=== PATIENT | male | born 1975 | race Caucasian/White ===

== ENCOUNTER 2017-01-17 07:43 | Emergency (ER) | payer OTHER ==
[~2017-01-17] VITALS: Ht 177.8 cm; Wt 96.2 kg
[~2017-01-17 07:43] MED LIST: CYCL10TA9 PO; HYDR-3816 PO; OXYC-197 PO; PRD20T PO
[2017-01-17 07:47] VITALS: BP 148/82
[2017-01-17] MEDS ORDERED: MELO15TA39 (08:12)
[2017-01-17 08:19] LABS: BILIRUBIN,URINE NEGATIVE (NEGATIVE); KETONES,URINE 1+ (NEGATIVE); LEUKOCYTE ESTERASE ,URINE 1+ (NEGATIVE); NITRITE,URINE NEGATIVE (NEGATIVE); PH,URINE 6 (5-9); PROTEIN,URINE 1+ (NEGATIVE); UROBILINOGEN,URINE 1 MG/DL (NORMAL)
[2017-01-17 08:20] LABS: BASOPHILS % (AUTO) 0 % (0-10); EOSINOPHILS # (AUTO) 0.3 10^3/uL (0.0-0.3); EOSINOPHILS % (AUTO) 4 % (0-10); LYMPHOCYTES # (AUTO) 2.3 X 10^3 (1.0-4.0); LYMPHOCYTES % (AUTO) 30 % (12-44); MEAN CORPUSCULAR HEMOGLOBIN 32 PG (25-34); MEAN CORPUSCULAR HGB CONC 35 G/DL (32-36); MEAN CORPUSCULAR VOLUME 90 FL (80-99); MEAN PLATELET VOLUME 9.4 FL (7.4-10.4); MONOCYTES # (AUTO) 0.6 X 10^3 (0.0-1.0); MONOCYTES % (AUTO) 8 % (0-12); NEUTROPHILS # (AUTO) 4.4 X 10^3 (1.8-7.8); NEUTROPHILS % (AUTO) 57 % (42-75); PLATELET COUNT 272 10^3/uL (130-400); RED BLOOD COUNT 5.02 10^6/uL (4.35-5.85); RED CELL DISTRIBUTION WIDTH 12.6 % (10.0-14.5); WHITE BLOOD COUNT 7.7 10^3/uL (4.3-11.0)
[2017-01-17 08:28] LABS: WBC,URINE RARE /HPF
[2017-01-17 08:39] LABS: ALANINE AMINOTRANSFERASE 24 U/L (0-55); ALBUMIN 4.5 GM/DL (3.2-4.5); ANION GAP 12 MMOL/L (5-14); ASPARTATE AMINO TRANSFERASE 15 U/L (5-34); BILIRUBIN,TOTAL 0.6 MG/DL (0.1-1.0); BLOOD UREA NITROGEN 13 MG/DL (7-18); BUN/CREATININE RATIO 11; CALCIUM 9.6 MG/DL (8.5-10.1); CARBON DIOXIDE 20 MMOL/L (21-32); CHLORIDE 109 MMOL/L (98-107); CREATININE SERUM 1.16 MG/DL (0.60-1.30); GFR ESTIMATED > 60; GLUCOSE 86 MG/DL (70-105); POTASSIUM 4.1 MMOL/L (3.6-5.0); SODIUM 141 MMOL/L (135-145); TOTAL PROTEIN 7.6 GM/DL (6.4-8.2)
[2017-01-17] MEDS ORDERED: fentaNYL INJECTION 100 MCG/2 ML AMP IM ONE (08:45)
--- NOTE | 2017-01-17 08:51 | ED Hip Pain/Injury ---
General Chief Complaint: Hip/Pelvic Problems Stated Complaint: LOWER LT BACK,LT HIP & LEG PAIN Nursing Triage Note: AMB TO ROOM WITH L HIP REPORTS ONSET YESTERDAY AFTER GETTING OFF COUCH Source: patient Exam Limitations: no limitations History of Present Illness Time seen by provider: 08:47 Initial Comments The patient is a 41-year-old white male who presents with a chief complaint of pain in his left buttocks and hip area. He reports that he got up off the couch at about 02 30 yesterday with considerable back pain although not so severe as today. He was still present when he got up at 05 30 but less. He was able to go to work and do reasonably well yesterday. 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 The pain is unabated. There is some radiation down the back of the left thigh. He arrived at work here in [place]. 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 He was really unable to perform and his boss sent him here. He reports an episode about 6 months ago which was less severe. He can recall no specific injury. Timing/Duration: yesterday, getting worse Severity: moderate Method of Injury: unknown Associated Symptoms: trouble walking Allergies and Home Medications Allergies Coded Allergies: codeine (Verified Allergy, Unknown, nausea, 02/13/16) Home Medications Meloxicam 15 Mg Tablet, #30 (Reported) Constitutional: see HPI EENTM: no symptoms reported Respiratory: no symptoms reported Cardiovascular: no symptoms reported Gastrointestinal: no symptoms reported Genitourinary: no symptoms reported Musculoskeletal: see HPI, back pain, muscle pain, muscle stiffness, muscle cramps Skin: no symptoms reported Psychiatric/Neurological: No Symptoms Reported Past Duyjzxo-Iwesyh-Smywyl Hx Patient Social History Alcohol Use: Occasionally Uses Recreational Drug Use: No Smoking Status: Current Everyday Smoker Type Used: Cigarettes Recent Foreign Travel: No Contact w/Someone Who Travel: No Recent Infectious Disease Expo: No Recent Hopitalizations: No Surgeries HX Surgeries: Yes (hernia repaired, thumb pinning) Surgeries: Orthopedic Respiratory Hx Respiratory Disorders: No Cardiovascular Hx Cardiac Disorders: No Neurological Hx Neurological Disorders: No Reproductive System Hx Reproductive Disorders: No Genitourinary Hx Genitourinary Disorders: No Gastrointestinal Hx Gastrointestinal Disorders: No Musculoskeletal Hx Musculoskeletal Disorders: No Endocrine Hx Endocrine Disorders: No HEENT HX ENT Disorders: No Cancer Hx Cancer: No Psychosocial Hx Psychiatric Problems: No Integumentary HX Skin/Integumentary Disorder: No Blood Transfusions Hx Blood Disorders: No Family Medical History Significant Family History: No Pertinent Family Hx Physical Exam Vital Signs Vital Sign - Last 12Hours 01/17/17 07:47 Temp 97.0 Pulse 82 Resp 18 B/P (MAP) 148/82 Pulse Ox 98 O2 Delivery Room Air Capillary Refill : Less Than 3 Seconds General Appearance: Mild Distress, Other (reports he is more comfortable lying on his right side with his knees slightly flexed) HEENT: Normal ENT Inspection Neck: Normal Inspection Cardiovascular: Regular Rate, Rhythm, No Edema, No Gallop, No JVD, No Murmur, Normal Peripheral Pulses Respiratory: Chest Non Tender, Lungs Clear, Normal Breath Sounds, No Accessory Muscle Use, No Respiratory Distress, Accessory Muscle Use Gastrointestinal: Normal Bowel Sounds, No Organomegaly, No Pulsatile Mass, Non Tender, Soft Back: Normal Inspection, Other (tender to palpation over sciatic notch on the left) Neurologic/Psychiatric: Alert, Oriented x3, No Motor/Sensory Deficits, Normal Mood/Affect, recreational therapy aide II-XII Norm as Tested, Abnormal Cerebellar Tests Lymphatic: No Adenopathy Progress/Results/Core Measures Results/Orders Lab Results Laboratory Tests Test 01/17/17 08:08 01/17/17 08:09 Range/Units White Blood Count 7.7 4.3-11.0 10^3/uL Red Blood Count 5.02 4.35-5.85 10^6/uL Hemoglobin 16.0 13.3-17.7 G/DL Hematocrit 45 40-54 % Mean Corpuscular Volume 90 80-99 FL Mean Corpuscular Hemoglobin 32 25-34 PG Mean Corpuscular Hemoglobin Concent 35 32-36 G/DL Red Cell Distribution Width 12.6 10.0-14.5 % Platelet Count 272 130-400 10^3/uL Mean Platelet Volume 9.4 7.4-10.4 FL Neutrophils (%) (Auto) 57 42-75 % Lymphocytes (%) (Auto) 30 12-44 % Monocytes (%) (Auto) 8 0-12 % Eosinophils (%) (Auto) 4 0-10 % Basophils (%) (Auto) 0 0-10 % Neutrophils # (Auto) 4.4 1.8-7.8 X 10^3 Lymphocytes # (Auto) 2.3 1.0-4.0 X 10^3 Monocytes # (Auto) 0.6 0.0-1.0 X 10^3 Eosinophils # (Auto) 0.3 0.0-0.3 10^3/uL Basophils # (Auto) 0.0 0.0-0.1 10^3/uL Sodium Level 141 135-145 MMOL/L Potassium Level 4.1 3.6-5.0 MMOL/L Chloride Level 109 H 98-107 MMOL/L Carbon Dioxide Level 20 L 21-32 MMOL/L Anion Gap 12 5-14 MMOL/L Blood Urea Nitrogen 13 7-18 MG/DL Creatinine 1.16 0.60-1.30 MG/DL Estimat Glomerular Filtration Rate > 60 BUN/Creatinine Ratio 11 Glucose Level 86 70-105 MG/DL Calcium Level 9.6 8.5-10.1 MG/DL Total Bilirubin 0.6 0.1-1.0 MG/DL Aspartate Amino Transf (AST/SGOT) 15 5-34 U/L Alanine Aminotransferase (ALT/SGPT) 24 0-55 U/L Alkaline Phosphatase 95 40-136 U/L Total Protein 7.6 6.4-8.2 GM/DL Albumin 4.5 3.2-4.5 GM/DL Urine Color YELLOW Urine Clarity CLEAR Urine pH 6 5-9 Urine Specific L[place] 1.025 H 1.016-1.022 Urine Protein 1+ H NEGATIVE Urine Glucose (UA) NEGATIVE NEGATIVE Urine Ketones 1+ H NEGATIVE Urine Nitrite NEGATIVE NEGATIVE Urine Bilirubin NEGATIVE NEGATIVE Urine Urobilinogen 1 NORMAL MG/DL Urine Leukocyte Esterase 1+ H NEGATIVE Urine RBC (Auto) NEGATIVE NEGATIVE Urine RBC NONE /HPF Urine WBC RARE /HPF Urine Squamous Epithelial Cells NONE /HPF Urine Crystals NONE /LPF Urine Bacteria NEGATIVE /HPF Urine Casts NONE /LPF Urine Mucus NEGATIVE /LPF Urine Culture Indicated NO Urine Opiates Screen NEGATIVE NEGATIVE Urine Oxycodone Screen NEGATIVE NEGATIVE Urine Methadone Screen NEGATIVE NEGATIVE Urine Propoxyphene Screen NEGATIVE NEGATIVE Urine Barbiturates Screen NEGATIVE NEGATIVE Ur Tricyclic Antidepressants Screen NEGATIVE NEGATIVE Urine Phencyclidine Screen NEGATIVE NEGATIVE Urine Amphetamines Screen NEGATIVE NEGATIVE Urine Methamphetamines Screen POSITIVE H NEGATIVE Urine Benzodiazepines Screen NEGATIVE NEGATIVE Urine Cocaine Screen NEGATIVE NEGATIVE Urine Cannabinoids Screen NEGATIVE NEGATIVE My Orders Orders - CHRISS SHELL MD Cbc With Automated Diff (01/17/17 07:56) Comprehensive Metabolic Panel (01/17/17 07:56) Drug Screen Stat (Urine) (01/17/17 07:56) Ua Culture If Indicated (01/17/17 07:56) Fentanyl Injection (Sublimaze Injection (01/17/17 08:45) Ct Lumbar Spine Wo (01/17/17 08:45) Medications Given in ED Current Medications Medications Dose Ordered Sig/Dex Route Start Time Stop Time Status Last Admin Dose Admin Fentanyl Citrate 50 mcg ONCE ONCE IM 01/17/17 08:45 01/17/17 08:46 DC 01/17/17 08:51 50 MCG Vital Signs/I&O Vital Sign - Last 12Hours 01/17/17 07:47 Temp 97.0 Pulse 82 Resp 18 B/P (MAP) 148/82 Pulse Ox 98 O2 Delivery Room Air Blood Pressure Mean: 104 Departure Communication Progress Notes CT scan returns. There is noted a grade 1 spondylolisthesis which showed appears to be increased as compared to 02/13/16 with bilateral chronic L5 pars defects. 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 Impression Impression: Primary Impression: sciatica Disposition: 01 HOME, SELF-CARE Condition: Stable/Unchanged Departure-Patient Inst. Decision time for Depature: 10:20 Referrals: NO,LOCAL PHYSICIAN (PCP) Primary Care Physician Add. Discharge Instructions: All discharge instructions reviewed with patient and/or family. Voiced understanding. You may be up and about with low level activity and not much bending at the hips. Take your medications as prescribed Heat to the low back area may be useful Sleeping on your side with a pillow between the knees is also useful. Your recovery will take days. If no evident improvement by early next week, he should make arrangements with orthopedics as we have discussed. Scripts Hydrocodone/Acetaminophen ([place] 7.5-325 Tablet) 1 Each Tablet 1 EACH PO 4 times a day, #20 TAB Prov: CHRISS SHELL MD 01/17/17 [Flexeril] No Conflict Check 10 ttwice a day, #20 Prov: CHRISS SHELL MD 01/17/17 Prednisone (Prednisone) 20 Mg Tab 20 MG PO DAILY, #10 TAB Take 2 each a.m. 3 days then 1 each a.m. until gone Prov: CHRISS SHELL MD 01/17/17 CHRISS SHELL MD Jan 17, 2017 08:51
--- NOTE | 2017-01-17 09:43 | Diagnostic Imaging Report ---
PROCEDURE: CT lumbar spine without contrast. TECHNIQUE: Multiple contiguous axial images were obtained through the lumbar spine without the use of intravenous contrast. Sagittal and coronal reformations were then performed. INDICATION: Severe back pain Findings: There is grade 1 spondylolisthesis of L5 over S1 minimally increased compared to 02/13/2016 exam. Bilateral chronic pars defects are seen at the L5 level. No other pars defects are seen and alignment at the of the lumbar spine is satisfactory. The vertebral body heights are preserved. There is mild disc height loss at L5/S1 with suggestion of a mild disc bulge at this level. Also suggested mild disc herniations at L3/4 and L4/5 are probably present. There is a generally no significant facet joint arthropathy seen. The foramina demonstrate evidence of a moderate to severe stenosis bilaterally at L4/5 and L5/S1 levels. There is no definite evidence of spinal canal stenosis based on this CT scan without intrathecal contrast. Impression: 1. There is grade 1 spondylolisthesis minimally increased compared to 02/13/2016 exam with bilateral chronic L5 pars defects seen. 2. Moderate to severe bilateral foraminal stenosis at L4/5 and L5/S1 is seen. Dictated by: Dictated on workstation # [id number]
[2017-01-17] MEDS ORDERED: Flexeril (10:29)
[2017-01-17] MEDS ORDERED: PRD20T PO (10:29)
[2017-01-17] MEDS ORDERED: HYDR-756 PO (10:30)
== END 2017-01-17 10:44 | disposition home or self-care (01) ==
LOC: EDUNIT# 07:43 → ER 07:45
DX: M54.30 Sciatica, unspecified side (principal); F17.210 Nicotine dependence, cigarettes, uncomplicated
CPT/HCPCS: 36415; 72131; 80053; 80306; 81000; 85025; 96372; 99283